=== PATIENT | male | born 1990 | race Caucasian/White ===

== ENCOUNTER 2017-02-15 18:24 | Emergency (ER) | payer OTHER ==
[~2017-02-15] VITALS: Ht 172.7 cm; Wt 80.1 kg
[~2017-02-15 18:24] MED LIST: DAILY VITE1 EAC1 PO; TYLENOL EXTRA500 MG PO; WELLBUTRIN100 MG PO
[2017-02-15] MEDS ORDERED: LOTRIMIN ULTRA12 GM TP (21:28)
[2017-02-15] MEDS ORDERED: PREDNISONE20 MG PO (21:28)
[2017-02-15 21:46] VITALS: BP 150/84
== END 2017-02-15 21:47 | disposition home or self-care (01) ==
LOC: EME 18:24
DX: B35.4 Tinea corporis (principal); F17.200 Nicotine dependence, unspecified, uncomplicated; Z86.19 Personal history of other infectious and parasitic diseases
CPT/HCPCS: 99281; 99283; J7512

== ENCOUNTER 2017-04-25 08:40 | Emergency (ER) | payer OTHER ==
[~2017-04-25] VITALS: Ht 172.7 cm; Wt 85.7 kg
[~2017-04-25 08:40] MED LIST changes: +LOTRIMIN ULTRA12 GM TP; +PREDNISONE20 MG PO
[2017-04-25] MEDS ORDERED: LO-DOSE ASPIRIN81 M1 PO (09:13)
[2017-04-25 09:15] LABS: MCH 30.1 PG (29.0-34.0); MCHC 35.6 G/DL (30.0-36.0); MCV 84.7 FL (86-99); MEAN PLAT.VOLUME 11.8 uM^3 (9.0-12.4); PLATELET COUNT 199 K/uL (156-360); RBC DIS.WIDTH-CV 12.1 % (11.8-14.6); RED BLOOD COUNT 5.31 M/uL (4.00-5.50); WHITE BLOOD COUNT 5.7 K/uL (4.1-10.2)
[2017-04-25 09:24] LABS: CHLORIDE 106 mEq/L (99-109); POTASSIUM 3.7 mEq/L (3.7-5.4); SODIUM 140 mEq/L (136-147)
[2017-04-25 09:26] LABS: GLUCOSE 133 mg/dL (70-99)
[2017-04-25 09:27] LABS: ANION GAP 12 MEQ/L (2-14)
[2017-04-25 09:29] LABS: GFR ESTIMATE (CALCULATED) > 59 mL/min/
[2017-04-25 09:30] LABS: UREA NITROGEN (BUN) 15 mg/dL (9-23)
[2017-04-25 09:35] LABS: TROP-I INTERPRETATION NEGATIVE; TROPONIN-I < 0.01 ng/mL (0.0-0.30)
[2017-04-25] MEDS ORDERED: MOTRIN400 MG PO (11:24)
[2017-04-25 11:49] VITALS: BP 142/73
== END 2017-04-25 11:51 | disposition home or self-care (01) ==
LOC: EME 08:40
PROVIDERS: Emergency Medicine
DX: R07.89 Other chest pain (principal); R94.31 Abnormal electrocardiogram [ECG] [EKG]; F17.200 Nicotine dependence, unspecified, uncomplicated; J45.909 Unspecified asthma, uncomplicated
CPT/HCPCS: 71010; 80048; 84484; 85027; 93005; 99281; 99284

== ENCOUNTER 2017-11-19 13:04 | Emergency (ER) | payer OTHER ==
[~2017-11-19] VITALS: Ht 172.7 cm; Wt 87.3 kg
[~2017-11-19 13:04] MED LIST changes: +LO-DOSE ASPIRIN81 M1 PO; +MOTRIN400 MG PO
[2017-11-19 17:44] VITALS: BP 138/88
== END 2017-11-19 17:44 | disposition home or self-care (01) ==
LOC: EME 13:04
DX: S01.81XA Laceration without foreign body of other part of head, initial encounter (principal); S60.221A Contusion of right hand, initial encounter; S80.02XA Contusion of left knee, initial encounter; V49.40XA Driver injured in collision with unspecified motor vehicles in traffic accident, initial encounter; Y92.410 Unspecified street and highway as the place of occurrence of the external cause; Z23 Encounter for immunization
CPT/HCPCS: 73110; 73130; 73564; 99281; 99284